=== PATIENT | female | born 1930 | race Caucasian/White ===

== ENCOUNTER 2018-02-02 06:26 | Inpatient (IN) | payer OTHER ==
[2018-01-22 10:09] LABS: ABSOLUTE LYMPHOCYTES 1.2 thou/uL (0.8-5.3); ABSOLUTE MONOCYTES 0.4 thou/uL (0.0-1.2); BASOPHILS 0.5 %; EOSINOPHILS 0.6 %; HEMATOCRIT 41.4 % (37.0-47.0); HEMOGLOBIN 13.9 gm/dL (12.0-15.0); LYMPHOCYTES 20.9 %; MCH 30.6 pg (26.0-34.0); MCHC 33.7 g/dL (28.0-37.0); MCV 90.7 fL (80.0-100.0); MONOCYTES 7.8 %; MPV 7.7 fl. (7.2-11.1); NUCLEATED RBCS 0 /100WBC; PLATELET COUNT* 180 thou/uL (150-400); POLYS 70.2 %; RBC 4.56 mil/uL (4.20-5.00); RDW-CV 14.3 % (10.5-14.5); WBC 5.7 thou/uL (4.0-11.0)
[2018-01-22 10:23] LABS: ALBUMIN 3.8 g/dL (3.4-5.0); APTT 28.2 Seconds (25.0-31.3); CREATININE 0.8 mg/dL (0.6-1.3); INR 1.1; POTASSIUM 4.1 mmol/L (3.5-5.1); PROTIME 10.7 Seconds (9.20-11.50); TOTAL BILIRUBIN 0.8 mg/dL (<0.1-1.0); TOTAL PROTEIN 7.2 g/dL (6.4-8.2)
[2018-01-22 11:18] LABS: ESR (SEDRATE) 10 mm/hr (0-30)
--- NOTE | 2018-01-22 12:54 | EKG ---
[place] [address] ELECTROCARDIOGRAM REPORT Name: KARMA BOSE Room: PRE IN [facility]#: [id number] Admission: Attend Phys: Estela Moss Discharge: Date of : [birth year] Report #: [id number] THIS REPORT FOR: //name// [facility] Test Date: 2018-01-22 Test Time: 09:17:00 Pat Name: KARMA BOSE Department: Room: Gender: F Accounting Manager: : 1930 Requested By: Stephen Guzman Order Number: [id number] Reading MD: Jay Pond Measurements Intervals [place] Rate: 61 P: -24 CT: 249 QRS: -53 QRSD: 96 T: 109 QT: 393 QTc: 396 Interpretive Statements Sinus rhythm Ventricular premature complex Prolonged CT interval Left anterior fascicular block Compared to ECG 10/27/2015 09:42:12 Ventricular premature complex(es) now present First degree AV block now present Left anterior fascicular block now present Sinus bradycardia no longer present T-wave abnormality no longer present Electronically Signed On 01-22-2018 12:54:45 PHYSICIAN OFFICE SPECIALIST by Jay Pond [email or web address] <ELECTRONICALLY SIGNED> By: Jay Pond MD, FACC 01/22/18 1254 0917 6 Jay Pond MD, [facility] /EPI
[~2018-02-02] VITALS: Ht 157.5 cm; Wt 68.5 kg
[~2018-02-02 06:26] MED LIST: ACCUPRIL; ACETAMINOPHEN325 M1; AMOXICILLIN 50500 MG PO; AUGMENTIN 875875 MG PO; BENADRYL25 MG PO; CALCIUM 600 +1 EAC1 PO; CENTRUM SILVER1 EAC4 PO; CIPROFLOXACIN500 M1 PO; CITRACAL-VIT D1 EAC2 PO; CLARITIN10 MG; COREG25 MG PO; COREG6.25 MG PO; CRESTOR; LEVOTHYROXINE0.05 MG PO; LISINOPRIL10 MG PO; NORVASC5 MG PO; PAXIL10 MG; PERIDEX 0.12%473 M1 PO; PREVACID; RANITIDINE HCL300 M1; SENNA8.6 M1 PO; SIMVASTATIN40 MG PO; SPIRONOLACT/HCT1 TA1; SYNTHROID; TRAMADOL 50 MG50 MG PO; VITAMIN D-32000 UNIT PO; VITAMINC500 PO; ZANTAC 150MG T150 MG PO; ZOLOFT
--- NOTE | 2018-02-02 15:38 | NUR ---
ASSUMED CARES OF PT POST SURGERY FOR TOTAL LEFT HIP REPLACEMENT AT 1245. PT IN BED, BED IN LOW LOCKED POSITION, FALL PRECAUTIONS IN PLACE. CALL BUTTON AND PERSONAL ITEMS IN PT REACH. REPORT RECEIVED FROM PACU STAFF. PT PRESENTLY DROWSEY/SLEEPY. PT DENIES PAIN. LEFT ANTERIOR HIP DRESSING SITE C/D/I. ICE PACKS ON AND OFF IN 20 MIN. INCREMENTS. SITE SOFT, NO BRUISING AT THIS TIME. IV PATENT TO FLUSH AND LR 75 ML/HR. FAMILY AT SIDE.
[2018-02-02 15:47] VITALS: BP 148/60
[2018-02-02 20:00] VITALS: BP 142/64
--- NOTE | 2018-02-02 20:11 | NUR ---
REPORT TO CERTIFIED MIDWIFE FOR CONTINUED CARES. PT MORE ALERT POST HIP SURGERY. IV INFUSING FLUIDS 75 ML/HR, ABT TOLERATED, NO AVR. PAIN MEDICATION HELPING CONTROL LEFT SURGICAL HIP PAIN. PT UP WITH ASSIST TOLERATED, EARLY AMBULATION, WBAT LEFT LE. DRESSING ON LEFT ANTERIOR HIP SITE C/D/I. NO BRUISING AT THIS TIME, SOFT TO TOUCH. FAMILY AT SIDE. PT REMAINS STABLE, TALKATIVE, OCC. ABRUPT, CURSING AND AGGITATED. HOURLY ROUNDING COMPLETED.
[2018-02-02 23:48] VITALS: BP 135/58
[2018-02-03 03:53] LABS: URINE BILIRUBIN NEGATIVE (Negative); URINE BLOOD NEGATIVE (Negative); URINE CLARITY CLEAR; URINE COLOR YELLOW; URINE GLUCOSE-RANDOM NEGATIVE (Negative); URINE KETONES NEGATIVE (Negative); URINE LEUKOCYTES-REFLEX NEGATIVE (Negative); URINE PROTEIN NEGATIVE (Negative); URINE SPECIFIC GRAVITY 1.025 (1.005-1.030); URINE UROBILINOGEN 0.2 E.U./dl (0.2-1.0)
[2018-02-03 04:04] LABS: URINE NITRITE-REFLEX POSITIVE (Negative)
--- NOTE | 2018-02-03 04:21 | NUR ---
PATIENT ORIENTED X4 ON HOURLY ROUNDS. UNABLE TO VOID, ROQUE CATHETER PLACED CLEAR YELLOW RETURN. PAIN CONTROLLED WITH OXY IR. VITALS STABLE ON 2L O2 WITH CAPNO IN PLACE. DRESSING TO LEFT HIP CLEAN, DRY AND INTAACT. DAUGHTER AT BEDSIDE. WILL CONTINUE TO MONITOR.
[2018-02-03 04:36] VITALS: BP 129/47
[2018-02-03 05:01] LABS: HEMATOCRIT 33.5 % (37.0-47.0); HEMOGLOBIN 11.3 gm/dL (12.0-15.0)
[2018-02-03 05:26] LABS: SQUAMOUS 0-3 Few /LPF (0-3); URINE RBC 0-2 Rare /HPF (0-2); URINE WBC-REFLEX 6-15 Few /HPF (0-5)
[2018-02-03 05:27] LABS: CRYSTALS None Seen /LPF (None Seen); HYALINE CASTS 0-3 Few /LPF (None Seen); MUCUS 4-6 Moderate strn/LPF (None Seen)
[2018-02-03 08:57] VITALS: BP 124/50
--- NOTE | 2018-02-03 15:30 | NUR ---
PT.VERY DROWSY. DAUGHTER,NAYLA,AT BEDSIDE SAID SHE JUST HAD PAIN MED AND BENADRYL FOR ITCHING. NAYLA ANSWERED QUESTIONS. PT.LIVES WITH HER 2 SONS,TY AND HARINI. TY IS HER DPOA. PT.USES A WALKER AND HAS A CANE. TRIED TO DISCUSS DISCHARGE PLANNING .NAYLA SAID YOU'LL HAVE TO TALK TO MY BROTHER. HES THE DECISION MAKER. TOLD HER I WOULD CHECK BACK WITH HER MOM TOMORROW AFTER THERAPY AND WHEN SHE WAS LESS DROWSY AND THEN CALL TY.
[2018-02-03 16:03] VITALS: BP 118/47
--- NOTE | 2018-02-03 18:41 | NUR ---
ASSUMED CARES OF PT AT 0700. PT IN BED, BED IN LOW LOCKED POSITION. FALL PRECAUTIONS IN PLACE. CALL BUTTON AND PERSONAL ITEMS IN PT REACH. PT A&O X4, HR IRREGULAR PER AUSCULTATION/CHRONIC. LCTAB/DIMINISHED, SHALLOW RESPIRATIONS. VSS ON RA, AFEBRILE, PERRLA, SKIN INTACT WITH SCATTERED BRUISING/SCARS. LEFT HIP ANTERIOR SURGERY SITE DRESSING C/D/I, NO BRUISING, SOFT TO PALPATION. PT REPORTS PAIN CONTROLLED, UP WITH THERAPIES. PT REPORTS CHOKING ON SOFT FOOD DIET, ST CONSULT REQUESTED. IV IN LFA PATENT TO FLUIDS AND FLUSH/SALINE LOCKED AT THIS TIME. ICE PACK TO LEFT HIP PRN/PT REQUESTED. FAMILY STAYING AT SIDE. PT PROGRESSING TOWARDS GOAL. HOURLY ROUNDING CONTINUES. WILL CONTINUE TO MONITOR PT PROGRESS AND STATUS.
[2018-02-03 20:00] VITALS: BP 126/52
--- NOTE | 2018-02-03 20:25 | NUR ---
REPORT TO COMPUTER CUSTOMER SUPPORT SPECIALIST FOR CONTINUED CARES. PT REMAINS STABLE AND A&O X4, OCC. FUSSY AND AGITATED. DAUGHTER AT BEDSIDE. LEFT HIP SURGICAL INCISION DRESSING C/D/I, NO BRUISING, SOFT TO PALPATATE. PT WELL CONTROLLED TODAY WITH MEDICATIONS AND ICE PACK. PT PARTICIPATED WITH THERAPIES. ST CONSULT ORDERED. HOURLY ROUNDING COMPLETED. PT PROGRESSING TOWARDS GOAL.
[2018-02-04 00:22] VITALS: BP 130/45
--- NOTE | 2018-02-04 04:33 | NUR ---
PATIENT RESTED QUIETLY FOR MAJORITY OF SHIFT. PAIN CONTROLLED WITH OXY IR, GIVEN X1 THIS SHIFT. DRESSING TO LEFT HIP IS CLEAN, DRY AND INTACT WITH ICE PACK IN PLACE. VITALS STABLE ON ROOM AIR. TOLERATING DIET WITH NO NAUSEA. DAUGHTER AT BEDSIDE. WILL CONTINUE TO MONITOR.
[2018-02-04 05:04] LABS: HEMATOCRIT 28.2 % (37.0-47.0); HEMOGLOBIN 9.8 gm/dL (12.0-15.0)
[2018-02-04 05:30] LABS: ALBUMIN 2.5 g/dL (3.4-5.0); CALCIUM 8.9 mg/dL (8.5-10.1); CREATININE 0.9 mg/dL (0.6-1.3); POTASSIUM 4.3 mmol/L (3.5-5.1); TOTAL BILIRUBIN 0.9 mg/dL (<0.1-1.0); TOTAL PROTEIN 4.9 g/dL (6.4-8.2)
[2018-02-04 05:32] VITALS: BP 124/56
[2018-02-04 07:54] VITALS: BP 113/54
--- NOTE | 2018-02-04 16:35 | NUR ---
SPOKE WITH PT.AND DAUGTHERS KERMIT AND NAYLA. PT.ALERT AND ORIENTED TODAY. EXPLAINED TO HER THAT SHE IS NOT PRORESSING WELL IN THERAPY. SHE ADAMANTLY REFUSED SNF. SHE SAID SHE IS NOT MADE OF [place] AND CANNOT AFFORD SNF. EXPLAINED THAT INSURANCE FOLLOWS MEDICARE GUIDELINES AND THEY WOULD PAY FOR 3 WEEKS OF THERAPY. STILL REFUSED. 'THE ONLY PLACE IM GOING IS MY HOME. MY 2 DAUGHTERS WILL BE WITH ME ALL THE TIME. SHE WANTS TO USE [facility] FOR HH. SHE HAS USED THEM BEFORE. REFERRAL SENT TO [facility]. WILL CALL IN ELIQUIS TO [facility]. WILL SEE HOW PT.IS DOING WITH THERAPY TOMORROW.
--- NOTE | 2018-02-04 16:42 | NUR ---
ASSUMED CARE OF PATIENT AFTER MORNING REPORT. ALERT AND ORIENTED X4. ASSESSMENT COMPLETED AND CHARTED. VSS ON ROOM AIR. PATIENT HAS HAD NO COMPLAINTS OF NAUSEA THIS SHIFT. PAIN HAS BEEN MANAGED WITH TYLENOL OXY MAKES HER ITCH AND SHE STATES THAT BENADRYL MAKES HER TOO SLEEPY. PATIENT HAS WORKED SLOWLY WITH THERAPY THIS MORNING AND REFUSED PT AND OT THIS AFTERNOON. SUPPORTIVE DAUGHTER IS AT BEDSIDE. HOURLY ROUNDS HAVE BEEN MAINTAINED. CALL LIGHT IS WITHIN REACH. NURSING WILL CONTINUE TO MONITOR.
[2018-02-04 16:49] VITALS: BP 113/76
--- NOTE | 2018-02-04 17:12 | NUR ---
WHEN I WENT IN TO GIVE THE 1700 SCHEDULED DOSE OF CARVEDILOL 25MG TO THE PATIENT, SHE INSISTED NO ONE HAD BEEN IN TO THE ROOM AND CHECKED HER BLOOD PRESSURE SINCE THIS MORNING WHEN I DID MY ONCOMING ASSESSMENT. I TOOK HER BLOOD PRESSURE AGAIN, AFTER THE GOLD LAYER HAD TAKEN IT FOR 1600 VITALS. PATIENT INSISTED ON ONLY TAKING HALF THE DOSAGE OF CARVEDILOL BOTH THIS MORNING AND THIS AFTERNOON.
[2018-02-04 19:07] VITALS: BP 135/47
[2018-02-04 20:00] VITALS: BP 141/54
[2018-02-05] VITALS: BP 114/43
[2018-02-05 03:41] VITALS: BP 135/46
--- NOTE | 2018-02-05 06:39 | NUR ---
Alert and oriented x 4. She is seemingly upset about not getting enough PT. But she refused PT. She states we can't get her pain under control but she doesn't want IV morphine and did take tylenol at bedtime. She hasn't had anything further. She has been sleeping. We are going to discontinue her yepez this am.
[2018-02-05 08:44] VITALS: BP 141/69
--- NOTE | 2018-02-05 12:08 | NUR ---
ASSUMED CARES OF PT AT 0700. PT IN BED, BED IN LOW LOCKED POSITION. FALL PRECAUTIONS IN PLACE, SCD'S IN PLACE AND ACTIVE. CALL BUTTON AND PERSONAL ITEMS IN PT REACH. DAUGHTER STAYING AT BEDSIDE. PT A&O X4, FUSSY, IRRITABLE. C/O PAIN IN LEFT HIP, FULLNESS IN GROIN AREA. NO BRUISING VIEWED ON INSPECTION, SOFT, NON TENDER ON PALPITATION. PT REFUSES TO WORK WITH THERAPIES BUT DOES NOT FEEL LIKE SHE IS IMPROVING. WANTS TO GO HOME WHEN D/C'D, NO SNF/REHAB. HR IRREGULAR PER AUSCULTATION, ASYMTOMATIC. VSS ON RA. DRESSING ON ANTERIOR HIP SURGICAL SITE C/D/I. LFA IV PATENT TO FLUSH/SL. PT STATES OXYCODONE MAKES HER ITCH, REFUSES OXYCODONE TODAY. TRAMADOL AND LIDOCAINE PATCH USED FOR PAIN, SOMEWHAT EFFECTIVE. HOURLY ROUNDS CONTINUE. WILL CONTINUE TO MONITOR PT PROGRESS AND STATUS.
--- NOTE | 2018-02-05 12:19 | S ---
[place] [address] SURGICAL PATH RPT PROCEDURE Name: KARMA BOSE Room: [address] IN .R.#: [id number] Admission: 02/02/18 Date of : [birth year] Discharge: Report #: [id number] Path Case #: [id number] PATHOLOGY REPORT COLLECTION DATE: 02/02/2018 RECEIVED DATE: 02/03/2018 SUBMITTING PHYS: Dr. Stephen Guzman OTHER PHYS: Dr. Jamil Maldonado SPECIMEN(S) RECEIVED: A.Bone left hip * * * * * * * * * * * * FINAL DIAGNOSIS: Femoral head, "bone left hip": - Degeneration of cartilage consistent with degenerative joint disease. (SHA:mgr; 02/05/2018) PATHOLOGIST: Antoni Billingsley M.D. REPORT ELECTRONICALLY SIGNED BY: Antoni Billingsley M.D. DATE/TIME: 02/05/2018 12:18 * * * * * * * * * * * * GROSS PATHOLOGY: Received in formalin labeled "Karma Bose bone left hip," is a femoral head measuring 4.7 x 4.5 x 3.8 cm in greatest dimensions admixed with soft tissue. The articular surface is smooth to granular and pale rollins-mendez to dark brown in appearance, displaying a well-circumscribed area of focal eburnation/pitting measuring 3.7 x 3.4 cm. Sectioning the bone reveals pale mendez to pale yellow cut surfaces. Compression Molding Machine Tender tissue is submitted in cassette A1, following decalcification. (DAC; 02/04/2018) CLINICAL HISTORY: Left hip degenerative joint disease INITIAL CPT CODE(S): A; 55776, 43072 Professional services performed by [facility] at [facility], [address] [place] [address] [address], [place] [address]. Technical services performed by [facility] at [address] [place] [address], [address] [address]. [place] [address] SURGICAL PATH RPT PROCEDURE Name: KARMA BOSE Room: [address] IN .R.#: [id number] Admission: 02/02/18 Date of : [birth year] Discharge: Report #: [id number] Path Case #: [id number] [facility] [address] [address] PHONE: [phone] DIRECTOR: Mark Preston M.D. * * * END OF REPORT * * *
--- NOTE | 2018-02-05 12:45 | NUR ---
PT CONTINUES TO REFUSE CARES, ARGUMENTATIVE. C/O PRESSURE IN GROIN, SOFT TO PALPATION, BLADDER SCAN SHOWS >328 ML IN BLADDER. PT REFUSING TO MOVE TO BSC AND REFUSING BED OSMAN. EDUCATION TO PT ABOUT BLADDER CARES IS REFUSED AND PT STATES MAKES HER MAD, DOESN'T WANT TO TALK ABOUT IT ANYMORE. WILL CONTINUE TO EDUCATE AND MONITOR PT PAIN, URINE OUTPUT. PT CONSTIPATED WELL, BUT DOES NOT WANT TO DO ANYTHING ABOUT ANYTHING IN HER WORDS. BUT PT EXPRESSES FRUSTRATION ABOUT NOT PROGRESSING IN HEALING PROCESS. PT STATED SHE WISHED SHE HAD NEVER DONE SURGERY IF SHE HAD KNOWN IT WAS GOING TO BE THIS BAD.
--- NOTE | 2018-02-05 13:34 | NUR ---
VISITED WITH PT AND FAMILY IN ROOM DAUGHTER HAS ASKED TO SPEAK TO CM ABOUT POSSIBILITY OF GOING TO INPT REHAB. INFORMED THEM THAT DUE TO PT NOT PROGRESSING WITH THERAPY AND OFTEN REFUSING THERAPY PT WOULD NOT LIKELY QUALIFY FOR REHAB. PT STATES SHE WOULD NOT DO THREE HOURS OF THERAPY A DAY AND ONLY WANTS TO DO" A LITTLE BIT". FAMILY STILL INSIST THAT PT NOT GO TO SNF. THEY PLAN ON TAKING PT HOME. PT STATES SHE NEEDS TO TALK TO HER SONS. ASKED PT IF HER SONS CAN COME UP AND WORK WITH THERAPY AND TALK WITH CM. PT AND DAUGHTER STATE THAT THE SONS ARE UNABLE TO COME UP DURING THE DAY AND CANNOT BE THE THE HOSPITAL UNTIL THE EVENING. ASKED THEM IF THERE WAS A WAY FOR THEM TO MAKE ARRANGEMENTS TO COME AND THEY STATED NO. DAUGHTER STATES THAT SHE IS GETTING A BSC FOR PT AND THAT SHE AND HER SIBLINGS ARE COMFORTABLE TRANSFERRING WITH TRANSFERRING PT AND ASSISTING WITH ADLS. THEY WOULD STILL LIKE PT TO HAVE HH WITH [facility]
[2018-02-05 15:18] VITALS: BP 120/61
[2018-02-05 16:20] LABS: URINE BILIRUBIN NEGATIVE (Negative); URINE BLOOD NEGATIVE (Negative); URINE CLARITY CLEAR; URINE COLOR YELLOW; URINE GLUCOSE-RANDOM NEGATIVE (Negative); URINE KETONES NEGATIVE (Negative); URINE LEUKOCYTES-REFLEX NEGATIVE (Negative); URINE NITRITE-REFLEX NEGATIVE (Negative); URINE PROTEIN NEGATIVE (Negative); URINE UROBILINOGEN 0.2 E.U./dl (0.2-1.0)
--- NOTE | 2018-02-05 19:05 | NUR ---
BEDSIDE REPORT TO VETERINARY TOXICOLOGIST FOR CONTINUE WITH PLAN OF CARES. PT REMAIN STABLE, ARGUMENTATIVE R/T CARES, DENIES SOME CARES. UA CLEAN CATCH TAKEN TO LAB. DAUGHTER REMAINS AT BEDSIDE. PT SLOW TO PROGRESS R/T PAIN AND REFUSING TO WORK WITH THERAPIES. IN BED MOST OF SHIFT. HOURLY ROUNDS COMPLETED.
[2018-02-05 23:54] VITALS: BP 145/68
--- NOTE | 2018-02-06 04:17 | NUR ---
PATIENT REMAINS ALERT AND ORIENTED X4, AGITATED AT TIMES. ENCOURAGED PATIENT TO AMBULATE AND GET OUT OF BED, UP TO BSC WITH ASSIST X2 VOIDING ADEQUATELY. PAIN CONTROLLED WITH TRAMADOL. DRESSING TO LEFT HIP IS CLEAN, DRY AND INTACT WITH ICE PACK IN PLACE. VITALS STABLE ON ROOM AIR. DAUGHTER AT BEDSIDE. CONTINUE TO MONITOR.
[2018-02-06 04:52] VITALS: BP 142/68
[2018-02-06 08:36] VITALS: BP 145/61
--- NOTE | 2018-02-06 15:19 | NUR ---
SPOKE WITH PT.AND DAUGHTER,NAYLA. PT.CONTINUES TO REFUSE THERAPY OR HAS POOR PARTICIPATION . SHE STILL PLANS ON GOING HOME. PER THERAPY NOTES, FAMILY DID TRAINING LAST AFTERNOON AND DID WELL WITH TRANSFERS. THEY HAVE ALL EQUIPMENT NEEDED AT HOME. A JORDAN,BSC, SHE CONTINUES TO WANT TO USE [facility] FOR HH. REFERRAL MADE TO THEM BY BEE Carr CM. CALLED TO CHECK COPAY FOR [facility]. IT WAS $197. SHE SAID SHE CANNOT AFFORD THAT. NOTIFIED VANESSA. SHE WILL CALL TO GET SOMETHING DIFFERENT. PALP-[phone]/[phone]
[2018-02-06 16:49] VITALS: BP 153/66
--- NOTE | 2018-02-06 18:02 | NUR ---
ASSUMED CARE OF PATIENT AFTER REPORT THIS MORNING. PATIENT AWAKE, ALERT, AND ORIENTED APPROPRIATELY. PHYSICAL ASSESSMENT COMPLETED AND CHARTED. COMPLAINED OF PAIN THIS SHIFT. GIVEN PRN AND SCHEDULED MEDICATIONS, SEE EMAR FOR DOCUMENTATION. VITAL SIGNS STABLE. OXYGEN SATURATION WITHIN NORMAL LIMITS ON ROOM AIR. PATIENT TRANSFERS AND AMBULATES WITH ASSISTANCE FROM STAFF. USES CALL LIGHT APPROPRIATELY, WITHIN REACH. DENIES NEEDS AT THIS TIME. NURSING WILL CONTINUE TO MONITOR.
[2018-02-06 20:00] VITALS: BP 126/56
--- NOTE | 2018-02-06 22:59 | NUR ---
THIS NURSE ASSUMES CARE OF PT AT 1930, PT IS AWAKE, ALERT AND OREINTED X 4, PT COMPLAINS OF LEFT HIP PAIN RATES 3/10, PT ALSO COMPLAINS OF NUMBNESS AND TINGLING IN TOES OF LLE, GLORIA TOLEDO REPOSITIONED PT THEN DENIES THESE SYMPTOMS, PT REFUSES TO BE REPOSITIONED BY FUR OPERATOR SHE SAYS SHE WILL NOT TURN AND DO NOT ASK HER TO TURN BECAUSE IT HURTS TOO BAD, PT UP TO BEDSIDE COMMODE WITH ASSIST 2, USE OF GAITBELT AND WALKER, PT RESTING QUIETLY IN BED WITH DAUGHTER AT BEDSIDE, REPORT GIVEN TO [facility]AT
[2018-02-07 03:48] VITALS: BP 127/62
--- NOTE | 2018-02-07 05:26 | NUR ---
RESUMED CARE OF PATIENT FROM MARCO ANTONIO RN. PT RESTING IN BED. PT REFUSED REPOSITIONING THIS SHIFT BECAUSE "IT WOULD JUST HURT TOO MUCH". PT KEPT ICE PACK ON HIP. NO REQUESTS FOR PAIN MEDS SINCE THIS NURSE ARRIVED. PT UP TO BSC WITH ASSISTANCE. PT ATTEMPTED TO DO MOST OF GETTING IN AND OUT OF BED ON HER OWN, LITTLE ASSIST WAS NEEDED. WILL CONTINUE WITH PLAN OF CARE.
[2018-02-07 08:00] VITALS: BP 168/65
--- NOTE | 2018-02-07 08:00 | NUR ---
AM ASSESSEMENT COMPLETE, DEFER TO COMPUTER CHARTING. DRESSING CDI TO LEFT HIP, ICE PACK IN PLACE. PATIENT WANTING TO GET UP TO BSC - MOD TO MAX ASSIST GIVEN PATIENT UNABLE TO SLIDE LEG OFF OF BED BY HERSELF OR GET INTO SITTING POSITION WITHOUT MAX ASSIST, DAUGHTER ABLE TO OFFER SOME ASSISTANCE. ANXIOUS, REASSURANCE GIVEN. PATIENT GIVEN PO PAIN MEDICATION TO ASSIST WITH PAIN CONTROL. CALL LIGHT WITHIN REACH. WILL MONITOR.
[2018-02-07 13:04] LABS: ABSOLUTE LYMPHOCYTES 0.6 thou/uL (0.8-5.3); ABSOLUTE MONOCYTES 0.5 thou/uL (0.0-1.2); ABSOLUTE NEUTROPHILS 4.9 thou/uL (1.6-8.1); BASOPHILS 0.3 %; EOSINOPHILS 0.5 %; HEMATOCRIT 26.1 % (37.0-47.0); HEMOGLOBIN 8.9 gm/dL (12.0-15.0); LYMPHOCYTES 10.6 %; MCH 31.1 pg (26.0-34.0); MCV 91.5 fL (80.0-100.0); MONOCYTES 8.5 %; MPV 7.5 fl. (7.2-11.1); NUCLEATED RBCS 0 /100WBC; PLATELET COUNT* 173 thou/uL (150-400); POLYS 80.1 %; RBC 2.85 mil/uL (4.20-5.00); RDW-CV 14.2 % (10.5-14.5); WBC 6.1 thou/uL (4.0-11.0)
[2018-02-07 13:09] LABS: CALCIUM 8.8 mg/dL (8.5-10.1); CREATININE 0.8 mg/dL (0.6-1.3); POTASSIUM 4.1 mmol/L (3.5-5.1)
--- NOTE | 2018-02-07 17:12 | NUR ---
PT.STILL WANTS TO CONTINUE TO GO HOME AT DISCHARGE WITH HOME HEALTH. SHE IS WORRIED ABOUT HOW SHE WILL GET HOME. SHE DOES NOT FEEL SHE CAN GET INTO A CAR WITHOUT IT HURTING. OFFERED HER TO GO HOME BY [facility]. SHE WANTS TO KNOW HOW MUCH IT WOULD COST BEFORE AGREEING TO THIS.
--- NOTE | 2018-02-07 17:14 | NUR ---
patient in cpm earlier for appox 2.5 hours 0-90 degree
[2018-02-07 17:55] VITALS: BP 156/66
[2018-02-07 19:50] VITALS: BP 139/48
[2018-02-08 04:00] VITALS: BP 160/51
--- NOTE | 2018-02-08 06:35 | NUR ---
PATIENT HAS REMAINED ALERT AND ORIENTED X 4 THROUGHOUT THE SHIFT AND RESTING QUIETLY ON HOURLY ROUNDS. GOOD PAIN MANAGEMENT WITH ULTRAM AND TYLENOL. SOME PROGRESSION WITH EASE OF TRANSFERS TO BSC. HAS NOT HAD A BM YET. PASSING GAS. NO NAUSEA. PATIENT INSISTS SHE WILL NOT HAVE A BM UNTIL SHE GOES HOME AND USES HER OWN TOILET. SOFTNER AT HS. DRESSING INTACT LEFT HIP. VITAL SIGNS STABLE. CONTINUE TO MONITOR.
--- NOTE | 2018-02-08 11:55 | NUR ---
RECIEVED REPORT FROM [facility] AND ASSUMED CARE OF PT @8742. PT IS A/O X4,BP SLIGHTLY ELEVATED AT 151/72, LUNGS SOUND CLEAR AND DIMINISHED, ON ROOM AIR SAT AT 95%.PT GETS UP TO BSC WITH ASSIST OF 1-2 AND WALKER. PT WONT HAVE A BOWEL MOVEMENT UNTIL SHE RETURNS HOME, ABDOMEN IS SOFT AND ACTIVE. NO IV ACCESS. PT IS CALM AND COOPERATIVE WITH NURSE. RATES PAIN AT 8 OUT OF 10-MEDICATION GIVEN WITH FULL RELIEF. PT LEFT IN BED WITH FALL PRECAUTIONS AND CALL LIGHT IN PLACE. DAUGHTER AT BEDSIDE.WILL CONTINUE TO MONITOR. PHYSICAL THERAPY TRIED TO WORK WITH PT TODAY BUT PT REFUSED MOST OF THE THERAPY. PHYSICAL THERAPY RECOMMENDS D/C TO SKILLED FACILITY BUT PT REFUSES, SO WILL OK FOR D/C TO HOME WITH HER ORIGINAL PLAN.
[2018-02-08 16:02] VITALS: BP 119/54
[2018-02-08] MEDS ORDERED: COLACE100 MG PO (16:56)
[2018-02-08] MEDS ORDERED: PEPCID20 MG PO (16:57)
[2018-02-08] MEDS ORDERED: ASPIR-TRIN325 MG PO (16:58)
[2018-02-08] MEDS ORDERED: OXYCODONE HCL5 M1 PO (17:00)
--- NOTE | 2018-02-08 17:19 | NUR ---
CAME TO SEE PT AND OK FOR D/C.[facility] CALLED PER PT REQUEST.PT WENT HOME WITH HOME HEALTH AND DAUGHTER.ORDERS FAXED TO HOME HEALTH AT D/C. PAPERWORK AND SCRIPTS GONE OVER AND GIVEN TO PT. ALL PERSONAL BELONGINGS TAKEN.
--- NOTE | 2018-03-23 16:46 | OP ---
[address] [address] OPERATIVE REPORT Name: KARMA BOSE Room: [address] IN .R.#: [id number] Admission: 02/02/18 Attend Phys: Estela Moss Discharge: 02/08/18 Date of : [birth year] Report #: [id number] THIS REPORT FOR: //name// CC: Stephen Thorpe DATE OF SERVICE: 02/02/2018 PREOPERATIVE DIAGNOSIS: Advanced degenerative joint disease, left hip. POSTOPERATIVE DIAGNOSIS: Advanced degenerative joint disease, left hip. PROCEDURE: Left total hip arthroplasty. IMPLANTS: Biomet G7 finned acetabular shell 4-hole #60 size. A 6.5 x 25 mm screw, a 6.5 x 30 mm screw, a dual mobility acetabular liner 46 bearing. A 6.5 x 15 mm screw, a 28 mm ceramic head, a standard neck taper adapter, a 12 x 109 mm high offset Microplasty femoral component, an E1 dual mobility bearing. SURGEON: Stephen Guzman DO. ANESTHESIA: General endotracheal. COMPLICATIONS: None. ESTIMATED BLOOD LOSS: 250 mL, none returned via Cell Saver. SPECIMENS: None. 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 For that reason, I am using a higher demand total hip system with a dual mobility hip and a larger shell as this will be deeply seated and potentially higher risk for dislocation. The patient has failed conservative treatment dates. She has severe changes to her quality of life with waking at night, unable to walk without severe pain. 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 No femoral acetabular joint space present. The patient is aware of the risks and complications of the surgery. They have been discussed in detail with her and her family. These include but are not limited to neurovascular damage, infection, fracture, need for further surgery, failure of the prosthesis, recall of the prosthesis, allergy developed for prosthesis, deep vein thrombosis, pulmonary emboli, myocardial infarction, rhabdomyolysis, leg length discrepancy and . Signed informed consent [place] [address] OPERATIVE REPORT Name: KARMA BOSE Room: [address]#: [id number] Admission: 02/02/18 Attend Phys: Estela Moss Discharge: 02/08/18 Date of : [birth year] Report #: [id number] chart, may refer to and her hip was marked preoperatively for timeout technique. DESCRIPTION OF PROCEDURE: The patient was taken to the operative suite, placed on the Ana Lilia table in supine position. The left leg was prepped and draped in the usual sterile fashion. An incision was made after timeout technique to the anterior aspect of the left hip approximately 1 cm posterior and inferior to the ASIS, extending 6 cm through skin and subcutaneous tissue down to the leg, in the same line as the leg. The incision carried through to the tensor fascia. The tensor fascia was then incised approximately 1 cm posterior to the interval between the tensor fascia carla and the sartorius musculature. This interval was developed with finger dissection down to the circumflex vessels which were treated with the Aquamantys and resected with electrocautery. The capsule was then treated with the Aquamantys with appropriate retractors in place and then resected. The femoral neck is resected once at the base of the femoral neck approximately a fingerbreadth above the lesser trochanter once at the base of femoral head. The neck is removed with a bone tenaculum, followed by removing the femoral head. The femoral head was difficult to remove due to the protrusio acetabulum that was present with a very deep seated femoral head. The acetabulum was then readied by removing the remaining labral structures, it was then extremely carefully reamed with a reaming system utilizing C-arm fluoroscopy to verify that the inner table was not broached. Once the acetabulum was reamed and the sides of the acetabulum had good bleeding bone, the inner table was still intact. The final cup was obtained, braided on the back table, sprinkled with vancomycin powder, impacted firmly into place in the proper alignment. This was checked with direct visualization, external guide and C-arm fluoroscopy. It was then anchored with 3 screws of various sizes, which were drilled, measured and appropriate screw length was placed. Attention was then turned to the femur. The proximal femur is prepared with a box osteotome, followed by the rattail broach and sequentially broached up to the appropriate size. A trial reduction was performed with various sized head and neck lengths. The stability was checked with range of motion of the hip through the entire arc of motion. Intraoperative x-rays were obtained with C-arm fluoroscopy to verify appropriate length size of the implants and appropriate location of screws, etc. The final dual mobility liner was impacted firmly into the acetabulum. The final femoral stem was impacted firmly into the proximal femur. A reduction with the final dual mobility liner and head was then performed placing on a clean, dry Pryor taper neck and impacting firmly. A reduction was performed. The hip was checked once again, leg lengths were excellent. Range of motion is very stable. No fractures or impaction into the acetabulum was noted. Copious irrigation carried out throughout the incision. The incision injected with anesthetic solution, is then sprinkled with vancomycin powder. Incision was then closed with a #1 Stratafix running suture to the tensor fascia, followed by a 2-0 Monocryl subcutaneous suture to the subcutaneous tissue and a running 3-0 Stratafix subcuticular suture reinforced with Dermabond glue. A Mepilex dressing is applied. [place] [address] OPERATIVE REPORT Name: KARMA BOSE Room: [address]#: [id number] Admission: 02/02/18 Attend Phys: Estela Moss Discharge: 02/08/18 Date of : [birth year] Report #: [id number] recovery in stable condition. No complications were encountered. Final instrument counts and sponge counts correct x 2. <ELECTRONICALLY SIGNED> By: Stephen Guzman DO 03/23/18 1646 [id number] [id number] Guzman DO /nt
== END 2018-02-08 17:10 | disposition home health service (06) | DRG 469 ==
LOC: M.PRE 06:26 → M.TBA 06:54 → M.PRE 08:26 → M.ORTHSURG 13:08 → M.PRE 14:28 → M.ORTHSURG 02-08 17:10
PROVIDERS: Family Medicine; Internal Medicine; Orthopaedic Surgery; ADMIT Internal Medicine
PROC: 0SRB019 Replacement of Left Hip Joint with Metal Synthetic Substitute, Cemented, Open Approach (ICD-10-PCS; principal; 2018-02-02)
DX: M16.12 Unilateral primary osteoarthritis, left hip (principal); G92 Toxic encephalopathy; N39.0 Urinary tract infection, site not specified; I10 Essential (primary) hypertension; K21.9 Gastro-esophageal reflux disease without esophagitis; E78.5 Hyperlipidemia, unspecified; E03.9 Hypothyroidism, unspecified; R41.81 Age-related cognitive decline; F32.9 Major depressive disorder, single episode, unspecified; Z96.652 Presence of left artificial knee joint; Z96.641 Presence of right artificial hip joint; Z96.1 Presence of intraocular lens; Z90.710 Acquired absence of both cervix and uterus; Z98.42 Cataract extraction status, left eye; Z98.41 Cataract extraction status, right eye; Z88.7 Allergy status to serum and vaccine; Z88.8 Allergy status to other drugs, medicaments and biological substances

== ENCOUNTER 2018-09-29 09:31 | Observation (INO) | payer OTHER ==
[~2018-09-29] VITALS: Ht 154.9 cm; Wt 68.0 kg
[~2018-09-29 09:31] MED LIST changes: +ASPIR-TRIN325 MG PO; +COLACE100 MG PO; +OXYCODONE HCL5 M1 PO; +PEPCID20 MG PO
[2018-09-29 09:35] VITALS: BP 188/74
[2018-09-29 10:17] LABS: ABSOLUTE EOSINOPHILS 0.1 thou/uL (0.0-0.7); ABSOLUTE LYMPHOCYTES 0.9 thou/uL (0.8-5.3); ABSOLUTE MONOCYTES 0.5 thou/uL (0.0-1.2); ABSOLUTE NEUTROPHILS 2.7 thou/uL (1.6-8.1); BASOPHILS 0.8 %; HEMATOCRIT 41.2 % (37.0-47.0); HEMOGLOBIN 13.9 gm/dL (12.0-15.0); LYMPHOCYTES 21.7 %; MCH 30.8 pg (26.0-34.0); MCHC 33.7 g/dL (28.0-37.0); MCV 91.4 fL (80.0-100.0); MONOCYTES 12.2 %; MPV 8.7 fl. (7.2-11.1); NUCLEATED RBCS 0 /100WBC; PLATELET COUNT* 113 thou/uL (150-400); POLYS 63.3 %; RBC 4.51 mil/uL (4.20-5.00); RDW-CV 14.1 % (10.5-14.5); WBC 4.3 thou/uL (4.0-11.0)
[2018-09-29 10:28] LABS: INR 1.1; PROTIME 11.3 Seconds (9.20-11.50)
[2018-09-29 10:36] LABS: ANION GAP 9 mmol/L (7-16); BUN 10 mg/dL (7-18); CALCIUM 8.9 mg/dL (8.5-10.1); CHLORIDE 103 mmol/L (98-107); CO2 25 mmol/L (21-32); CREATININE 0.6 mg/dL (0.6-1.3); GLUCOSE 106 mg/dL (70-99); POTASSIUM 4.8 mmol/L (3.5-5.1); SODIUM 137 mmol/L (136-145)
[2018-09-29 10:49] LABS: URINE BILIRUBIN NEGATIVE (Negative); URINE BLOOD NEGATIVE (Negative); URINE CLARITY CLEAR; URINE COLOR YELLOW; URINE GLUCOSE-RANDOM NEGATIVE (Negative); URINE KETONES NEGATIVE (Negative); URINE LEUKOCYTES-REFLEX NEGATIVE (Negative); URINE NITRITE-REFLEX NEGATIVE (Negative); URINE PROTEIN TRACE (Negative)
[2018-09-29 10:52] LABS: ALBUMIN 3.5 g/dL (3.4-5.0); ALKALINE PHOSPHATASE 67 U/L (46-116); NT-PRO BRAIN NAT PEPTIDE 273 pg/mL (<300); SGOT 42 U/L (15-37); SGPT 29 U/L (30-65); TOTAL BILIRUBIN 0.7 mg/dL (<0.1-1.0); TOTAL PROTEIN 6.6 g/dL (6.4-8.2); TROPONIN-I LEVEL <0.06 ng/mL (<0.06)
[2018-09-29 11:32] VITALS: BP 176/61
--- NOTE | 2018-09-29 14:35 | EKG ---
[place] [address] ELECTROCARDIOGRAM REPORT Name: KARMA BOSE Room: [address] ADM IN .R.#: [id number] Admission: 09/29/18 Attend Phys: Romeo Zelaya MD Discharge: Date of : [birth year] Report #: [id number] THIS REPORT FOR: //name// [facility] ED Test Date: 2018-09-29 Test Time: 09:45:58 Pat Name: KARMAKELLIE BOSE Department: Room: [facility] Gender: F Apprentice Plumber: Domi EVANS : 1930 Requested By: Darek Black Order Number: [id number] MD: Jay Pond Measurements Intervals [place] Rate: 63 P: 34 NV: 212 QRS: -43 QRSD: 104 T: 95 QT: 404 QTc: 414 Interpretive Statements Sinus rhythm Borderline prolonged NV interval Left anterior fascicular block Abnormal R-wave progression, consider lead misplacement Compared to ECG 01/22/2018 09:17:00 Ventricular premature complex(es) no longer present Electronically Signed On 09-29-2018 14:35:22 RADIOLOGY PHYSICIAN ASSISTANT by Jay Pond [email or web address] <ELECTRONICALLY SIGNED> By: Jay Pond MD, FACC 09/29/18 1435 0945 0945 Jay Pond MD, FAC /EPI
[2018-09-29 16:38] VITALS: BP 175/70
[2018-09-29] MEDS ORDERED: SYNTHROID50 MCG PO (20:40)
[2018-09-29] MEDS ORDERED: ZANTAC 150MG T150 MG PO (20:40)
[2018-09-30 08:00] VITALS: BP 175/70
--- NOTE | 2018-09-30 11:51 | CON ---
[address] [address] CONSULTATION Name: KARMA BOSE Room: [address] M.R.#: [id number] Admission: 09/29/18 Attend Phys: Romeo Zelaya MD Discharge: Date of : 11/04/[birth year] Report #: [id number] THIS REPORT FOR: //name// CC: Romeo Zelaya Jarrell Maldonado DATE OF SERVICE: 09/29/2018 ATTENDING PHYSICIAN: Romeo Zelaya MD REASON FOR EVALUATION: Varicella zoster viral infection involving the left superior scalp with associated ear pain. HISTORY OF PRESENT ILLNESS: Chart reviewed, patient examined. This is an 87-year-old that was admitted through the emergency room with complaints of left-sided facial rash, somewhat unclear as to the onset, but perhaps up to 4-5 days ago, did have a vesicular component. She primarily complains of left-sided ear pain with drainage. She was evaluated on at least a couple of occasions, at one point was given levofloxacin for possible otitis and perhaps otitis externa. In spite of that, it worsened. She denies any significant visual disturbances, although there has been some increased periorbital swelling. Denies pulmonary or gastrointestinal related complaints. It is not clear if she has had fever, although she always feels cold. Her appetite has been only fair. Initial evaluation reveals question of varicella zoster. CBC was otherwise unremarkable. Urinalysis as well was unrevealing. Did have a mildly elevated AST. Empirically started on acyclovir. ALLERGIES: Extensive including INFLUENZA, NIACIN, HYDROCODONE, CARBAMAZEPINE, NAPROXEN, CEFIXIME, AMITRIPTYLINE, NORTRIPTYLINE, CITALOPRAM, MELOXICAM, DULOXETINE. CURRENT MEDICATIONS: As noted above, the acyclovir, ondansetron, tramadol. PAST MEDICAL HISTORY: As described above, hypertension, reflux, hypothyroidism, depression, chronic back pain, arthritis, total hip replacement, left knee arthroscopy. SOCIAL HISTORY: Nonsmoker, no ethanol. FAMILY HISTORY: Noncontributory. REVIEW OF SYSTEMS: As above. PHYSICAL EXAMINATION: GENERAL: Appears somewhat chronically ill-appearing, somewhat undernourished. VITAL SIGNS: Temperature 97.2, pulse 84, respirations 16, [place] [address] CONSULTATION Name: KARMA BOSE Room: [address]#: [id number] Admission: 09/29/18 Attend Phys: Romeo Zelaya MD Discharge: Date of : 11/04/[birth year] Report #: [id number] 176/61. HEENT: Remarkable for apparent left forehead extending to the lateral scalp, partially denuded vesicular rash with superficial ulcers, some moderate degree of marginal erythema with some degree of periorbital swelling with some redness. There is no lesion on the tip of the nose, did not appear to have any significant scleritis or conjunctivitis. LUNGS: Diminished, otherwise clear. HEART: Regular. I do not appreciate a murmur. ABDOMEN: Soft, nontender, nondistended. EXTREMITIES: No cyanosis. GENITOURINARY: Deferred. RECTAL: Deferred. LABORATORY DATA: Electrolytes: Sodium 137, potassium 4.8, chloride 103, bicarbonate is 25, anion gap of 9, BUN and creatinine 10 and 0.6. LFTs: AST borderline elevated at 42. Total bilirubin of 0.7, albumin of 3.5, total protein 6.6. Estimated GFR of 95. Urinalysis unremarkable. PT is 11.3, INR of 1.1. CBC: White count of 4.3, H and H 13.9 and 41.2, platelets of 113. ASSESSMENT AND PLAN: Varicella zoster viral infection involving the left side of the cervical distribution that may be a Amanda Borden. I think we will address with antiviral therapy and treat with parenteral, at least initially planning on transitioning to oral. Also, we will add antibacterial. I think there may be a secondary component of skin and soft tissue infection and perhaps an early cellulitis. At this point, I do not think there is any eye involvement. We will see how she does clinically. This could account for some generalized weakness as well. We will have to monitor expectantly. Certainly, she is at risk for nosocomial related infectious complications. <ELECTRONICALLY SIGNED> By: Guille León MD 09/30/18 1151 1308 [id number] León MD /nt
[2018-09-30 15:17] VITALS: BP 175/70
[2018-09-30 15:35] VITALS: BP 175/70
[2018-09-30] MEDS ORDERED: VALTREX1000 MG PO (15:41)
[2018-09-30] MEDS ORDERED: MINOCYCLINE HC100 M2 PO (15:42)
== END 2018-09-30 16:22 | disposition home or self-care (01) ==
LOC: M.ERS 09:31 → M.TBA-ER 10:52 → M.3W 10:52
PROVIDERS: Family Medicine; ADMIT Internal Medicine
DX: E86.0 Dehydration (principal); B02.39 Other herpes zoster eye disease; L03.90 Cellulitis, unspecified; H92.02 Otalgia, left ear; I10 Essential (primary) hypertension; K21.9 Gastro-esophageal reflux disease without esophagitis; E03.9 Hypothyroidism, unspecified; F32.9 Major depressive disorder, single episode, unspecified; M19.90 Unspecified osteoarthritis, unspecified site; G89.29 Other chronic pain; M54.9 Dorsalgia, unspecified; Z98.890 Other specified postprocedural states; Z79.82 Long term (current) use of aspirin; Z79.899 Other long term (current) drug therapy

== ENCOUNTER 2020-03-07 22:06 | Observation (INO) | payer OTHER ==
[~2020-03-07] VITALS: Ht 157.5 cm; Wt 76.9 kg
[~2020-03-07 22:06] MED LIST changes: +MINOCYCLINE HC100 M2 PO; +SYNTHROID50 MCG PO; +VALTREX1000 MG PO
[2020-03-07 22:19] VITALS: BP 223/84
[2020-03-07] MEDS ORDERED: ASA81BEC PO (22:25)
[2020-03-07] MEDS ORDERED: CALCIUM500 MG (22:26)
[2020-03-07] MEDS ORDERED: VITAMIN D325 MC3 PO (22:27)
[2020-03-07] MEDS ORDERED: SUPER THERAVIT1 EACH PO (22:27)
[2020-03-07 22:32] LABS: ABSOLUTE EOSINOPHILS 0.1 thou/uL (0.0-0.7); ABSOLUTE LYMPHOCYTES 1.2 thou/uL (0.8-5.3); ABSOLUTE MONOCYTES 0.6 thou/uL (0.0-1.2); ABSOLUTE NEUTROPHILS 3.9 thou/uL (1.6-8.1); BASOPHILS 0.5 %; EOSINOPHILS 2.1 %; HEMATOCRIT 40.2 % (37.0-47.0); HEMOGLOBIN 13.6 gm/dL (12.0-15.0); LYMPHOCYTES 20.7 %; MCH 29.9 pg (26.0-34.0); MCHC 33.9 g/dL (28.0-37.0); MCV 88.4 fL (80.0-100.0); MONOCYTES 9.6 %; MPV 8.1 fl. (7.2-11.1); NUCLEATED RBCS 0 /100WBC; PLATELET COUNT* 183 thou/uL (150-400); POLYS 67.1 %; RBC 4.54 mil/uL (4.20-5.00); RDW-CV 13.7 % (10.5-14.5); WBC 5.8 thou/uL (4.0-11.0)
[2020-03-07 22:43] LABS: CALCIUM 8.9 mg/dL (8.5-10.1); CREATININE 0.9 mg/dL (0.6-1.3); POTASSIUM 3.8 mmol/L (3.5-5.1)
[2020-03-07 22:45] LABS: PROTIME 10.7 Seconds (9.20-11.50)
[2020-03-07 22:53] LABS: ALBUMIN 3.8 g/dL (3.4-5.0); MAGNESIUM 1.9 mg/dL (1.8-2.4); TOTAL BILIRUBIN 0.5 mg/dL (<0.1-1.0); TOTAL PROTEIN 7.1 g/dL (6.4-8.2)
[2020-03-07 23:03] LABS: URINE BILIRUBIN NEGATIVE (Negative); URINE BLOOD NEGATIVE (Negative); URINE CLARITY CLEAR; URINE COLOR YELLOW; URINE GLUCOSE-RANDOM NEGATIVE (Negative); URINE KETONES NEGATIVE (Negative); URINE NITRITE-REFLEX NEGATIVE (Negative); URINE PROTEIN 1+ (Negative); URINE UROBILINOGEN 0.2 E.U./dl (0.2-1.0)
[2020-03-07 23:06] LABS: URINE LEUKOCYTES-REFLEX 2+ (Negative)
[2020-03-07 23:07] LABS: BACTERIA-REFLEX >30 Many /HPF (None Seen); CASTS None Seen /LPF (None Seen); SQUAMOUS 0-3 Few /LPF (0-3); URINE RBC 0-2 Rare /HPF (0-2)
[2020-03-07 23:08] LABS: CRYSTALS None Seen /LPF (None Seen)
[2020-03-08] VITALS (7 sets, daily range): BP systolic 116–174; BP diastolic 42–87
--- NOTE | 2020-03-08 06:34 | NUR ---
RECEIVED REPORT FROM DOCKETING SPECIALISTJARRET CASTAÑEDA AT 0232. PT ARRIVED TO UNIT AT 0250. PT AAOX4, ORIENTED TO ROOM AND CALL LIGHT. TOOLING SPECIALIST IN PLACE, TRACING SR WITH 1D. HIGH FALL PRECAUTIONS IN PLACE. CALL LIGHT WITHIN REACH. PT VOICED NO CONCERNS AT THIS TIME. NEGATIVE SEPSIS SCREENING.
[2020-03-08] MEDS ORDERED: ACETAMINOPHEN325 MG PO (07:08)
--- NOTE | 2020-03-08 13:31 | NUR ---
CM spoke with Pt's son, Petr, via phone. Pt resides at home with son. Independent. Pt's dtr assists with bathing, son completes IADLs. Pt uses a walker and cane for mobility. Hx of [facility]. No hx of SNF. Per son, Pt was brought in to the hospital for increased BP and back pain. Goal is for Pt to return home at dc, no needs anticipated.
--- NOTE | 2020-03-08 15:42 | EKG ---
[place] [address] ELECTROCARDIOGRAM REPORT Name: KARMA BOSE Room: [address]#: [id number] Admission: 03/08/20 Attend Phys: Salvador Parikh, Discharge: Date of : 11/04/30 Date of Service: 03/07/205 Report #: [id number] THIS REPORT FOR: //name// [facility] ED Test Date: 2020-03-07 Test Time: 22:15:32 Pat Name: KARMA BOSE Department: Room: [facility] Gender: F Plate Conditioner: MICHELLE : 1930 Requested By: Tianna Hayward Order Number: [id number] MD: Unruly Delacruz Measurements Intervals [place] Rate: 67 P: -14 MT: 211 QRS: -42 QRSD: 104 T: 107 QT: 413 QTc: 436 Interpretive Statements Sinus rhythm Abnormal R-wave progression, early transition LVH with secondary repolarization abnormality Compared to ECG 09/29/2018 09:45:58 Left ventricular hypertrophy now present Early repolarization now present Electronically Signed On 03-08-2020 15:41:30 CDT by Unruly Delacruz [email or web address] <ELECTRONICALLY SIGNED> By: Unruly Delacruz MD, [facility] 03/08/20 1541 2215 2215 Unruly Delacruz MD, [facility] /EPI
--- NOTE | 2020-03-08 18:17 | NUR ---
RECEIVED REPORT FROM JODY RN. ASSUMED CARE OF PATIENT AROUND 0730. PATIENT A&OX4. MANAGER CLIENT SUPPORT IN PLACE TRACING SR WITH 1ST DEG BLOCK. ASSESSMENT AND VITALS COMPLETED CHARTED. MEDS GIVEN PER EMAR. UPDATE GIVEN TO FAMILY. PATIENT HAD PUREWICK IN PLACE WITH 500ML DARK YELLOW URINE OUTPUT. PATIENT GIVEN BRIEF AND PUREWICK REMOVED AT 1500 FOR PHYSICAL THERAPY. PATIENT NAUSEATED. MED GIVEN. PATIENT HAS 20G IV IN R AC SALINE LOCKED. PATIENT SKIN INTACT. NO REDNESS ON BUTTOCKS. PATIENT UP TO CHAIR WITH GAITBELT, WALKER AND STANDBY ASSISTANCE. PATIENT BACK TO BED AT 1815 AND PUREWICK APPLIED TO PATIENT. CALL LIGHT IN REACH.
--- NOTE | 2020-03-08 18:35 | NUR ---
RECEIVED REPORT FROM JODY RN. ASSUMED CARE OF PT AROUND 0730. PT CONFUSED, ALERT, ORIENTED TO SELF ONLY. AM ASSESSMENT AND VITALS COMPLETED CHARTED. TAMPING MACHINE OPERATOR ROAD FORMS IN PLACE. PT COMPLETED RENAL BIOPSY OF LEFT KIDNEY THIS SHIFT. VITALS CHARTED. HYPERTENSIVE, HYDRALAZINE GIVEN. ROQUE DC'D PER ORDER DUE TO CLOTTING OFF DESPITE IRRIGATION. PT ABLE TO USE URINAL FOR I&0'S. PVRS DONE. URINE BLOOD TINGED THROUGHOUT SHIFT. PROVIDER AWARE. H&H STABLE. PT CONFUSED AND IMPULSIVE POST PROCEDURE PULLING AT LINES AND DESATING - SITTER INITIATED. CAPNO INITIATED. PT TOLERATING DIET. ASSISTED WITH MEALS. PT TURNED Q2HRS. PT CURRENTLY RESTING IN BED. CALL LIGHT IS WITHIN REACH. HOURLY ROUNDING PERFORMED. FALL PRECAUTIONS IN PLACE
[2020-03-09 00:22] VITALS: BP 130/82
[2020-03-09 04:09] VITALS: BP 127/46
--- NOTE | 2020-03-09 07:44 | NUR ---
ASSUMED PT CARE AT APPROX 1930. PT IS AWAKE AND ORIENTED X4. ATHLETIC TEAM PHYSICIAN IS TRACING SB w 1st DEGREE AVB. ASSESSMENT DONE AND CHARTED. PT DENIES THE NEED FOR PAIN MEDS THIS SHIFT. PT IS ABLE TO SLEEP MOST OF THE NIGHT. PUREWICK CHANGED AT APPROX 0430. CALL LIGHT WITHIN REACH. HIGH FALL PRECAUTIONS IN PLACE. HOURLY ROUNDING DONE FOR PT SAFETY.
[2020-03-09] MEDS ORDERED: LIDOPATCH1 EACH TOP (08:06)
[2020-03-09] MEDS ORDERED: BACTRIM DS TAB1 EACH PO (08:06)
[2020-03-09 10:32] VITALS: BP 150/56
--- NOTE | 2020-03-09 12:12 | NUR ---
PT A&OX4 VSS. PT UP W ASSIST X1 W/WALKER. IV TO RAC DC PRIOR TO LEAVING UNIT. NO REDNESS/SWELLING AT SITE. PT ON ROOM AIR O2 SAT 93%. PUREWICK DC AT START OF SHIFT. PT AMBULATED WITH THERAPY TODAY, NO DIFFICULTY, GAIT STEADY. PT DRESSED INDEPENDENTLY. PT STATES UNDERSTANDING OF DC EDUCATION PROVIDED. RX ALREADY AVAILABLE FOR P/U FROPM PT PHARMACY OF CHOICE. PT CONTACTED SON BY CELL FOR RIDE HOME. PT ESCORTED OFF UNIT IN BY NURSING STAFF. PT BELONGINGS IN BELONGING BAG W/ PT.
== END 2020-03-09 12:20 | disposition home health service (06) ==
LOC: M.ERS 22:06 → M.2W 03-08 01:44 → M.TBA-ER 03-08 01:44 → M.2W 03-08 02:48
PROVIDERS: Emergency Medicine; ADMIT Internal Medicine
DX: I16.0 Hypertensive urgency (principal); I10 Essential (primary) hypertension; M54.9 Dorsalgia, unspecified; N39.0 Urinary tract infection, site not specified; G89.29 Other chronic pain; M19.90 Unspecified osteoarthritis, unspecified site; E03.9 Hypothyroidism, unspecified; K21.9 Gastro-esophageal reflux disease without esophagitis

== ENCOUNTER 2020-03-15 16:52 | Observation (INO) | payer OTHER ==
[~2020-03-15] VITALS: Ht 154.9 cm; Wt 72.6 kg
[~2020-03-15 16:52] MED LIST changes: +ACETAMINOPHEN325 MG PO; +ASA81BEC PO; +BACTRIM DS TAB1 EACH PO; +CALCIUM500 MG; +LIDOPATCH1 EACH TOP; +SUPER THERAVIT1 EACH PO; +VITAMIN D325 MC3 PO
[2020-03-15 16:58] VITALS: BP 207/77
[2020-03-15 18:01] LABS: ABSOLUTE EOSINOPHILS 0.1 thou/uL (0.0-0.7); ABSOLUTE LYMPHOCYTES 1.4 thou/uL (0.8-5.3); ABSOLUTE MONOCYTES 0.7 thou/uL (0.0-1.2); BASOPHILS 0.6 %; EOSINOPHILS 1.9 %; HEMATOCRIT 38.8 % (37.0-47.0); HEMOGLOBIN 13.5 gm/dL (12.0-15.0); LYMPHOCYTES 23.1 %; MCH 30.8 pg (26.0-34.0); MCHC 34.8 g/dL (28.0-37.0); MCV 88.4 fL (80.0-100.0); MONOCYTES 10.7 %; NUCLEATED RBCS 0 /100WBC; PLATELET COUNT* 271 thou/uL (150-400); POLYS 63.7 %; RBC 4.38 mil/uL (4.20-5.00); RDW-CV 14.1 % (10.5-14.5); WBC 6.3 thou/uL (4.0-11.0)
[2020-03-15 18:10] LABS: URINE BILIRUBIN NEGATIVE (Negative); URINE BLOOD NEGATIVE (Negative); URINE CLARITY CLEAR; URINE COLOR YELLOW; URINE GLUCOSE-RANDOM NEGATIVE (Negative); URINE KETONES NEGATIVE (Negative); URINE LEUKOCYTES-REFLEX NEGATIVE (Negative); URINE NITRITE-REFLEX NEGATIVE (Negative); URINE PROTEIN NEGATIVE (Negative); URINE SPECIFIC GRAVITY 1.025 (1.005-1.030); URINE UROBILINOGEN 0.2 E.U./dl (0.2-1.0)
[2020-03-15 18:22] LABS: CALCIUM 9.2 mg/dL (8.5-10.1); CREATININE 0.9 mg/dL (0.6-1.3)
[2020-03-15 18:27] LABS: ALBUMIN 3.8 g/dL (3.4-5.0); TOTAL BILIRUBIN 0.7 mg/dL (<0.1-1.0); TOTAL PROTEIN 6.8 g/dL (6.4-8.2)
[2020-03-15 18:28] LABS: POTASSIUM 5.5 mmol/L (3.5-5.1)
[2020-03-15 23:05] VITALS: BP 124/78
[2020-03-15 23:30] VITALS: BP 155/63
[2020-03-16 04:00] VITALS: BP 125/53
[2020-03-16 05:29] LABS: HEMATOCRIT 36.8 % (37.0-47.0); HEMOGLOBIN 12.6 gm/dL (12.0-15.0); MCH 29.9 pg (26.0-34.0); MCHC 34.2 g/dL (28.0-37.0); MCV 87.4 fL (80.0-100.0); MPV 7.8 fl. (7.2-11.1); RBC 4.21 mil/uL (4.20-5.00); RDW-CV 14.3 % (10.5-14.5)
[2020-03-16 05:50] LABS: ALBUMIN 3.5 g/dL (3.4-5.0); CALCIUM 8.3 mg/dL (8.5-10.1); CREATININE 1.1 mg/dL (0.6-1.3); TOTAL BILIRUBIN 0.5 mg/dL (<0.1-1.0); TOTAL PROTEIN 6.4 g/dL (6.4-8.2)
[2020-03-16 05:51] LABS: POTASSIUM 3.9 mmol/L (3.5-5.1)
[2020-03-16 08:00] VITALS: BP 138/66
[2020-03-16 12:12] VITALS: BP 145/58
[2020-03-16] MEDS ORDERED: ULTRAM 50MG TAB50 MG PO (12:13)
[2020-03-16] MEDS ORDERED: FLEXERIL PO (12:13)
[2020-03-16] MEDS ORDERED: LIDOPATCH1 EACH TOP (12:15)
--- NOTE | 2020-03-16 13:24 | EKG ---
[place] [address] ELECTROCARDIOGRAM REPORT Name: KARMA BOSE [address] [id number] Admission: 03/15/20 Attend Phys: Jamil Thorpe Discharge: Date of : 11/04/[birth year] Date of Service: 03/15/20 1745 Report #: [id number] THIS REPORT FOR: //name// [facility] ED Test Date: 2020-03-15 Test Time: 17:45:10 Pat Name: KARMA BOSE Department: Room: [facility] Gender: F Cotton Tipper: : 1930 Requested By: Agustina Herrera Order Number: [id number] MD: Juan Celestin Measurements Intervals Jbphh Rate: 63 P: 14 NM: 236 QRS: -41 QRSD: 103 T: 94 QT: 416 QTc: 426 Interpretive Statements Sinus rhythm Prolonged NM interval Abnormal R-wave progression, late transition LVH with secondary repolarization abnormality Compared to ECG 03/07/2020 22:15:32 First degree AV block now present Electronically Signed On 03-16-2020 13:22:51 CDT by Juan Celestin [email or web address] <ELECTRONICALLY SIGNED> By: Juan Celestin MD, [facility] 03/16/20 1322 1745 1745 Juan Celestin MD, [facility] /EPI
[2020-03-16 13:52] VITALS: BP 145/58
[2020-03-16 15:02] VITALS: BP 145/58
[2020-03-16 17:00] VITALS: BP 135/54
== END 2020-03-16 17:00 | disposition home or self-care (01) ==
LOC: M.ERS 16:52 → M.TBA-ER 19:02 → M.2W 19:02
PROVIDERS: Emergency Medicine; Nurse Practitioner Family; ADMIT Internal Medicine
DX: M43.16 Spondylolisthesis, lumbar region (principal); E87.5 Hyperkalemia; M41.34 Thoracogenic scoliosis, thoracic region; K44.9 Diaphragmatic hernia without obstruction or gangrene; I25.10 Atherosclerotic heart disease of native coronary artery without angina pectoris; G89.29 Other chronic pain; J92.9 Pleural plaque without asbestos; I70.0 Atherosclerosis of aorta; E03.9 Hypothyroidism, unspecified; K21.9 Gastro-esophageal reflux disease without esophagitis; I10 Essential (primary) hypertension; B02.9 Zoster without complications; F32.9 Major depressive disorder, single episode, unspecified; Z98.890 Other specified postprocedural states; Z87.891 Personal history of nicotine dependence

== ENCOUNTER 2020-04-03 14:48 | Inpatient (IN) | payer OTHER ==
[~2020-04-03] VITALS: Ht 157.5 cm; Wt 71.7 kg
[~2020-04-03 14:48] MED LIST changes: +FLEXERIL PO; +ULTRAM 50MG TAB50 MG PO
[2020-04-03 14:55] VITALS: BP 224/88
[2020-04-03 15:37] LABS: ABSOLUTE EOSINOPHILS 0.2 thou/uL (0.0-0.7); ABSOLUTE LYMPHOCYTES 0.9 thou/uL (0.8-5.3); ABSOLUTE MONOCYTES 0.6 thou/uL (0.0-1.2); ABSOLUTE NEUTROPHILS 6.5 thou/uL (1.6-8.1); BASOPHILS 0.3 %; EOSINOPHILS 2.1 %; HEMOGLOBIN 12.8 gm/dL (12.0-15.0); LYMPHOCYTES 10.4 %; MCH 29.8 pg (26.0-34.0); MCHC 33.6 g/dL (28.0-37.0); MCV 88.7 fL (80.0-100.0); MONOCYTES 7.5 %; MPV 7.6 fl. (7.2-11.1); NUCLEATED RBCS 0 /100WBC; PLATELET COUNT* 226 thou/uL (150-400); POLYS 79.7 %; RBC 4.29 mil/uL (4.20-5.00); RDW-CV 13.9 % (10.5-14.5); WBC 8.2 thou/uL (4.0-11.0)
[2020-04-03 15:46] LABS: CALCIUM 8.8 mg/dL (8.5-10.1); CREATININE 0.9 mg/dL (0.6-1.3); POTASSIUM 3.5 mmol/L (3.5-5.1)
[2020-04-03 15:59] LABS: TOTAL BILIRUBIN 0.9 mg/dL (<0.1-1.0)
[2020-04-03 16:05] LABS: APTT 28.7 Seconds (25.0-31.3); INR 1.1; PROTIME 11.4 Seconds (9.20-11.50)
--- NOTE | 2020-04-03 16:39 | EKG ---
[place] [address] ELECTROCARDIOGRAM REPORT Name: KARMA BOSE Room: [facility]#: [id number] Admission: 04/03/20 Attend Phys: Discharge: Date of : 11/04/30 Date of Service: 04/03/20 1510 Report #: [id number] THIS REPORT FOR: //name// [facility] ED Test Date: 2020-04-03 Test Time: 15:10:55 Pat Name: KARMA BOSE Department: Room: Gender: F Ecological Economist: : 1930 Requested By: Chucky Rivers Order Number: [id number] MD: Jay Pond Measurements Intervals [place] Rate: 65 P: -1 TN: 185 QRS: -40 QRSD: 102 T: 22 QT: 458 QTc: 477 Interpretive Statements Sinus rhythm Left ventricular hypertrophy, by voltage Borderline prolonged QT interval Compared to ECG 03/15/2020 17:45:10 First degree AV block no longer present Early repolarization no longer present Electronically Signed On 04-03-2020 16:37:42 CDT by Jay Pond [email or web address] <ELECTRONICALLY SIGNED> By: Jay Pond MD, [facility] 04/03/20 1637 1510 1510 Jay Pond MD, [facility] /EPI
[2020-04-03 16:48] LABS: URINE BILIRUBIN NEGATIVE (Negative); URINE BLOOD NEGATIVE (Negative); URINE CLARITY CLEAR; URINE COLOR YELLOW; URINE GLUCOSE-RANDOM NEGATIVE (Negative); URINE KETONES NEGATIVE (Negative); URINE LEUKOCYTES-REFLEX NEGATIVE (Negative); URINE NITRITE-REFLEX NEGATIVE (Negative); URINE PROTEIN 2+ (Negative); URINE SPECIFIC GRAVITY 1.025 (1.005-1.030)
--- NOTE | 2020-04-03 16:58 | NUR ---
AT 1630 DR VERAS NOTIFIED OF HIGH BP AND NEW ORDERS RECEIVED
[2020-04-03 16:59] LABS: BACTERIA-REFLEX None Seen /HPF (None Seen); CASTS None Seen /LPF (None Seen); CRYSTALS None Seen /LPF (None Seen); MUCUS 4-6 Moderate strn/LPF (None Seen); SQUAMOUS 4-10 Moderate /LPF (0-3); URINE RBC None Seen /HPF (0-2); URINE WBC-REFLEX None Seen /HPF (0-5)
[2020-04-03 20:35] VITALS: BP 174/70
[2020-04-03] MEDS ORDERED: NORCO 10-325 T1 EACH PO (21:06)
[2020-04-04] VITALS: BP 177/76
--- NOTE | 2020-04-04 08:06 | NUR ---
PT WAS ADMITTED TO ROOM 212 PER CART. TRANSFERRED PER STAFF. DR NOTIFIED ABOUT MEDS AND NPO STATUS AND PT MAY NEED ROQUE FOR PAIN CONTROL. PT DECLINED ROQUE LAST NIGHT BUT DID REQUEST ONE THIS AM. PT HAD MINIMAL INCONTINENCE DURING THE NIGHT. 640CC YYELLOW URINE DRAINED AFTER INITIAL INSERTION OF CATHERTER. PT REPORTS PAIN CONTROL WITH HOME PO PAIN MEDICATION. SLEPT THROUGH MOST OF THE NIGHT. CALL LIGHT IN REACH. HOURLY ROUNDING FOR SAFETY.
[2020-04-04 08:27] VITALS: BP 171/70
--- NOTE | 2020-04-04 14:00 | NUR ---
PT DOWN TO IR FOR KYPHOPLASTY AT THIS TIME. PT TO TRANSFER TO ROOM 308 AFTER PROCEDURE. REPORT GIVEN TO RECEIVING RN. PT AWARE OF PLAN OF CARE. ALL BELONGINGS TAKEN TO ROOM 308. NO OTHER CONCERNS AT THIS TIME.
--- NOTE | 2020-04-04 15:03 | NUR ---
Cm spoke with Pt's son via phone. Pt resides at home with her son, Petr. Pt recently dc from the hospital to home in February, Pt declined HH at or d/t not wanting anyone in their home during quarantine. Hx of [facility]. No hx of SNF. Per son, Pt had been doing ok at home, had been moving around ok. Pt got up during the night and on the way back to her bedroom, Pt fell. Per son, he suspects that Pt went to the bathroom without either her cane or walker. Son is hopeful that Pt will be able to return home at or, son does not want Pt going to a skilled facility d/t Covid. Son would be open to acute rehab, if Pt qualifies and its needed. Therapy evals pending. Following for dispo
--- NOTE | 2020-04-04 18:21 | NUR ---
PT A&OX4 VSS. PT BROUGHT TO THIS UNIT FOLLOWING PROCEDURE FOR VERTEBRAL FX. PT STATES PAIN IS GREATLY IMPROVED. PT REGULAR DIET FOR DINNER. IV TO PRANAV PATENT, DRESSING C/D/I. PT ON ROOM AIR, NO C/O SOA. PT RESTING IN BED WITH CALL LIGHT IN REACH. FALL PRECAUTIONS IN PLACE.
[2020-04-04 20:00] VITALS: BP 125/57
[2020-04-05 05:30] VITALS: BP 154/66
--- NOTE | 2020-04-05 06:06 | NUR ---
PATIENT SLEPT MOST OF THE NIGHT. PATIENT WAS GIVEN PAIN MEDS ONCE THIS SHIFT. IV REMAINS SALINE LOCKED. WILL CONTINUE TO MONITOR.
[2020-04-05 08:00] VITALS: BP 167/56
--- NOTE | 2020-04-05 14:26 | NUR ---
ASSUMED CARE OF PT APPROX 0730. REASSESMENT COMPLETED CHARTED. MEDICATIONS GIVEN CHARTED. PT UP TO BEDSIDE CHAIR THIS AM WITH THERAPY. PT BACK TO BED THIS AFTERNOON. PTS ROQUE D/ASHLEY. PT REPORTED PAIN, MEDICATION GIVEN PER JAN. SAFTEY PRECAUTIONS UTILIZED.
[2020-04-05 20:00] VITALS: BP 138/56
--- NOTE | 2020-04-06 05:47 | NUR ---
PATIENT SLEPT MOST OF THE NIGHT. IV REMAINS SALINE LOCKED. PATIENT WAS GIVEN PAIN MEDICINE ONCE THIS SHIFT. PATIENT COULD POSSIBLY DISCHARGE TODAY. WILL CONTINUE TO MONITOR.
[2020-04-06 07:40] VITALS: BP 160/50
[2020-04-06 10:03] VITALS: BP 160/50
--- NOTE | 2020-04-06 12:04 | NUR ---
PATIENT GIVEN D/C INSTRUCTIONS PER DR MARCH. ANSWERED ALL QUESTIONS. ALL BELONGINGS AND D/C PACKET SENT HOME WITH PATIENT. NO SCRIPTS. PATIENT REFUSING ALL REHAB AND HOME HEALTH. SON AGREED TO HELP TAKE CARE OF PATIENT. PATIENT TAKEN BY JANA WITH NURSING STAFF TO CAR WITH SON.
--- NOTE | 2020-04-06 13:00 | NUR ---
Pt dc home with son today and refused any follow up services of HH or SNF and pt also declined possibility of inpt rehab.
== END 2020-04-06 11:58 | disposition home or self-care (01) | DRG 516 ==
LOC: M.ERS 14:48 → M.TBA-ER 17:17 → M.2W 17:17 → M.3W 04-04 15:30
PROVIDERS: Emergency Medicine Emergency Medical Services; ADMIT Internal Medicine
PROC: 0QU03JZ Supplement Lumbar Vertebra with Synthetic Substitute, Percutaneous Approach (ICD-10-PCS; principal; 2020-04-04)
PROC: 0QS03ZZ Reposition Lumbar Vertebra, Percutaneous Approach (ICD-10-PCS; principal; 2020-04-04)
DX: M80.88XA Other osteoporosis with current pathological fracture, vertebra(e), initial encounter for fracture (principal); E44.1 Mild protein-calorie malnutrition; I16.0 Hypertensive urgency; F32.9 Major depressive disorder, single episode, unspecified; K21.9 Gastro-esophageal reflux disease without esophagitis; E03.9 Hypothyroidism, unspecified; M54.10 Radiculopathy, site unspecified; M47.896 Other spondylosis, lumbar region; I10 Essential (primary) hypertension; Z68.28 Body mass index [BMI] 28.0-28.9, adult; Z88.5 Allergy status to narcotic agent; Z91.19 Patient's noncompliance with other medical treatment and regimen; Z88.8 Allergy status to other drugs, medicaments and biological substances; Z88.7 Allergy status to serum and vaccine; Z88.4 Allergy status to anesthetic agent